=== PATIENT | female | born 1990 | race American Indian/Alaskan Native ===

== ENCOUNTER 2018-01-24 15:36 | Emergency (ER) | payer OTHER, MEDICAID ==
[2018-01-24 15:47] VITALS: BP 116/73
[2018-01-24] MEDS ORDERED: MOTRIN PO ONE (17:19)
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
== END 2018-01-24 18:59 | disposition home or self-care (01) ==
LOC: ED 15:36
DX: S13.4XXA Sprain of ligaments of cervical spine, initial encounter (principal); S39.012A Strain of muscle, fascia and tendon of lower back, initial encounter; S86.912A Strain of unspecified muscle(s) and tendon(s) at lower leg level, left leg, initial encounter; V49.49XA Driver injured in collision with other motor vehicles in traffic accident, initial encounter; Y92.488 Other paved roadways as the place of occurrence of the external cause; Y93.89 Activity, other specified; Y99.9 Unspecified external cause status
CPT/HCPCS: 99283